=== PATIENT | male | born 1945 | race Caucasian/White ===

== ENCOUNTER → 2018-03-30 | Outpatient (CLI) | payer MEDICARE, BC ==
[~2018-03-30] MED LIST: 0.9 % SODIUM CHLORIDE 10 ML VIAL ONE; IOHEXOL 300 MG/ML 50 ML VIAL. ONE; LIDOCAINE 1% PF 30 ML VIAL. ONE; methylPREDNISolone ACETATE 80 MG/ML VIAL. ONE
== END ==
LOC: SURG 12:21
PROVIDERS: ATTEND Anesthesiology Pain Medicine
DX: M54.16 Radiculopathy, lumbar region (principal); Z72.89 Other problems related to lifestyle; Z87.39 Personal history of other diseases of the musculoskeletal system and connective tissue; Z85.46 Personal history of malignant neoplasm of prostate; Z98.890 Other specified postprocedural states
CPT/HCPCS: 62323; J1040; J2001; Q9967

== ENCOUNTER → 2018-05-03 | Outpatient (CLI) | payer MEDICARE, BC | END | disposition home or self-care (01) | LOC: SURG 12:22 | PROVIDERS: ATTEND Anesthesiology Pain Medicine | DX: M54.16 Radiculopathy, lumbar region (principal); Z85.46 Personal history of malignant neoplasm of prostate; Z87.39 Personal history of other diseases of the musculoskeletal system and connective tissue | CPT/HCPCS: 99213 ==

== ENCOUNTER → 2018-05-24 | Outpatient (CLI) | payer MEDICARE, BC | END | disposition home or self-care (01) | LOC: SURG 09:32 | PROVIDERS: ATTEND Anesthesiology Pain Medicine | DX: Z85.46 Personal history of malignant neoplasm of prostate (principal); I10 Essential (primary) hypertension; M54.16 Radiculopathy, lumbar region; M47.816 Spondylosis without myelopathy or radiculopathy, lumbar region; Z98.890 Other specified postprocedural states; Z87.39 Personal history of other diseases of the musculoskeletal system and connective tissue | CPT/HCPCS: 99213 ==

== ENCOUNTER 2020-07-28 15:11 | Emergency (ER) | payer MEDICARE ==
[~2020-07-28] VITALS: Ht 172.7 cm; Wt 111.3 kg
[2020-07-28] MEDS ORDERED: IV NORMAL SALINE 1,000ML 1,000 ML IV ONE (16:30)
[2020-07-28] MEDS ORDERED: ACETAMINOPHEN 500 MG TABLET PO ONE (16:30)
[2020-07-28 16:39] LABS: BASO % 0 % (0-3); EOS % 0 % (0-3); HEMATOCRIT 44.6 % (39.0-53.0); HEMOGLOBIN 14.9 g/dL (13.0-17.5); LYMPH # 1.6 x10^3/uL (1.0-4.8); LYMPH % 20 % (24-48); MEAN CORPUSCULAR HEMOGLOBIN 30 pg (25-35); MEAN CORPUSCULAR HGB CONC 33 g/dL (31-37); MEAN CORPUSCULAR VOLUME 89 fL (79-100); MONO # 0.6 x10^3/uL (0.0-1.1); MONO % 8 % (0-9); NEUT # 5.7 x10^3uL (1.8-7.7); NEUT % 71 % (31-73); PLATELET COUNT 175 x10^3/uL (140-400); RED BLOOD COUNT 5.03 x10^6/uL (4.30-5.70)
[2020-07-28] MEDS ORDERED: IV NORMAL SALINE 100ML 100 ML ONE (16:43)
[2020-07-28 16:47] LABS: CALCIUM 8.5 mg/dL (8.5-10.1); CREATININE 1.4 mg/dL (0.7-1.3); GFR 49.7; POTASSIUM 4.3 mmol/L (3.5-5.1)
--- NOTE | 2020-07-28 16:53 | RAD ---
EXAM: CT head without contrast INDICATION: Fever, headache COMPARISON: None TECHNIQUE: Axial CT imaging through the head without intravenous contrast. One or more of the following individualized dose reduction techniques were utilized for this examination: 1. Automated exposure control 2. Adjustment of the mA and/or kV according to patient size 3. Use of iterative reconstruction technique. FINDINGS: The ventricles and sulci are within normal limits. [place]-white matter differentiation is maintained. There is no intracranial hemorrhage, acute infarct, or mass lesion. Basal cisterns are clear. The skull and scalp are intact. Paranasal sinuses and mastoid air cells are clear. Globes and orbits are intact.. IMPRESSION: No acute intracranial abnormality. Electronically signed by: Jeanine Malagon MD (07/28/2020 4:50 PM) [id number]
--- NOTE | 2020-07-28 16:54 | RAD ---
EXAM: CHEST AP ONLY 07/28/2020 4:23 PM CLINICAL INDICATION: Fever, cough COMPARISON: None TECHNIQUE: AP upright view the chest FINDINGS: The cardiomediastinal silhouette is within normal limits for technique. The lung are well-expanded and clear. No consolidation, pleural effusion, or pneumothorax. Pulmonary vascularity is normal. There is spinal stimulator leads projecting over the thoracic spine. IMPRESSION: No acute cardiopulmonary abnormality. Electronically signed by: Jeanine Malagon MD (07/28/2020 4:51 PM) [id number]
[2020-07-28 17:00] LABS: ALBUMIN 3.5 g/dL (3.4-5.0); ALBUMIN/GLOBULIN RATIO 0.9 (1.0-1.7); TOTAL BILIRUBIN 0.6 mg/dL (0.2-1.0); TOTAL PROTEIN 7.5 g/dL (6.4-8.2)
--- NOTE | 2020-07-28 17:50 | EKG ---
[address] [address] Test Date: 2020-07-28 Test Time: 17:42:10 Pat Name: EMY DUNCAN Department: Room: Gender: M Driver Manager: PAPITO : 1945 Requested By: GURDEEP SILVA Order Number: [id number] Reading MD: Measurements Intervals [place] Rate: 68 P: 30 KS: 292 QRS: -75 QRSD: 108 T: 26 QT: 402 QTc: 432 Interpretive Statements SINUS RHYTHM PROLONGED [place] INTERVAL ABNORMAL LEFT AXIS DEVIATION R-S TRANSITION ZONE IN V LEADS DISPLACED TO THE LEFT LEFT ANTERIOR FASCICULAR BLOCK ABNORMAL ECG RI6.02 No previous ECG available for comparison
--- NOTE | 2020-07-28 18:11 | PHYS DOC ---
Past History Past Medical History: Anxiety, GERD, High Cholesterol, Other Additional Past Medical Histor: RAPID HEART RATE Past Surgical History: Other Additional Past Surgical Histo: PROSTATE CANCER SURGERY 2003; MULTIPLE BACK SURGERIES Alcohol Use: Occasionally Adult General Chief Complaint Chief Complaint: HEADACHE HPI HPI Patient is a 75-year-old male who presents with generalized malaise. Patient reports generalized malaise and URI-like symptoms for past 48 hours. Reports waking up today with dull headache. Patient lives at home with who reports that patient has not verbally expressed any symptomology prior to her leaving for work this morning. Nonetheless, checked in on patient who was less talkative and quite sounded bad quite over the phone. She ultimately came home to assess patient and was concerned given patient's generalized malaise and lethargic state prompting her to transport patient to our ER for evaluation. On arrival, AAOx3. Patient febrile but otherwise hemodynamically stable. Patient reporting generalized malaise, mild rhinorrhea, dull tension-like headache, without any other abnormal symptoms such as neck pain, chest pain, shortness of breath, productive cough, abdominal pain, urinary symptoms, changes in bladder or bowel function. He does admit he has eaten and drank less over the past 48 hours since symptom onset. No known COVID-19 contacts at this time Review of Systems Review of Systems Fourteen body systems of review of systems have been reviewed. See HPI for pertinent positives and negative responses, other licona all other systems are negative, non-pertinent or non-contributory Current Medications Current Medications Current Medications Medications (Trade) Dose Ordered Sig/Kyler Start Time Stop Time Status Last Admin Dose Admin Acetaminophen (Tylenol) 1,000 mg 1X ONCE 07/28/20 16:30 07/28/20 16:31 DC 07/28/20 16:51 1,000 MG Ceftriaxone Sodium 2 gm/ Sodium Chloride 100 ml @ 200 mls/hr 1X ONCE 07/28/20 16:30 07/28/20 16:59 DC 07/28/20 16:53 200 MLS/HR Ceftriaxone Sodium (Rocephin) 2 gm STK-MED ONCE 07/28/20 16:43 07/28/20 16:43 DC Sodium Chloride 100 ml @ As Directed STK-MED ONCE 07/28/20 16:43 07/28/20 16:43 DC Allergies Allergies Allergies Coded Allergies Type Severity Reaction Last Updated Verified No Known Drug Allergies 07/28/20 No Physical Exam Physical Exam Constitutional: Well developed, well nourished, no acute distress, appears fatigued, mildly diaphoretic HENT: Normocephalic, atraumatic, bilateral external ears normal, oropharynx moist, no oral exudates, moderate postnasal drip present, moderately engorged nasal turbinates with clear rhinorrhea present, external nose normal. Eyes: PERRLA, EOMI, conjunctiva normal, no discharge. Neck: Normal range of motion, no tenderness, supple, no stridor. Negative Kernig and Brudzinski signs, no other meningeal concerns Cardiovascular: Heart rate regular, sinus rhythm, no murmurs rubs or gallops Lungs & Thorax: Bilateral breath sounds clear to auscultation Abdomen: Bowel sounds normal, soft, no tenderness, no masses, no pulsatile masses. Nonsurgical abdomen, no peritoneal signs Skin: Warm, dry, no erythema, no rash. Back: No tenderness, no CVA tenderness. Extremities: No tenderness, no cyanosis, no clubbing, ROM intact, no edema. Neurologic: Alert and oriented X 3, grossly normal motor & sensory function, no focal deficits noted. Psychologic: Affect normal, judgement normal, mood normal. Current Patient Data Vital Signs Vital Signs Date Time Temp Pulse Resp B/P (MAP) Pulse Ox O2 Delivery O2 Flow Rate FiO2 07/28/20 15:49 102.6 74 18 138/81 (100) 94 Lab Results Laboratory Tests Test 07/28/20 16:10 White Blood Count 8.0 x10^3/uL (4.0-11.0) Red Blood Count 5.03 x10^6/uL (4.30-5.70) Hemoglobin 14.9 g/dL (13.0-17.5) Hematocrit 44.6 % (39.0-53.0) Mean Corpuscular Volume 89 fL (79-100) Mean Corpuscular Hemoglobin 30 pg (25-35) Mean Corpuscular Hemoglobin Concent 33 g/dL (31-37) Red Cell Distribution Width 14.0 % (11.5-14.5) Platelet Count 175 x10^3/uL (140-400) Neutrophils (%) (Auto) 71 % (31-73) Lymphocytes (%) (Auto) 20 % (24-48) L Monocytes (%) (Auto) 8 % (0-9) Eosinophils (%) (Auto) 0 % (0-3) Basophils (%) (Auto) 0 % (0-3) Neutrophils # (Auto) 5.7 x10^3uL (1.8-7.7) Lymphocytes # (Auto) 1.6 x10^3/uL (1.0-4.8) Monocytes # (Auto) 0.6 x10^3/uL (0.0-1.1) Eosinophils # (Auto) 0.0 x10^3/uL (0.0-0.7) Basophils # (Auto) 0.0 x10^3/uL (0.0-0.2) Sodium Level 131 mmol/L (136-145) L Potassium Level 4.3 mmol/L (3.5-5.1) Chloride Level 97 mmol/L (98-107) L Carbon Dioxide Level 28 mmol/L (21-32) Anion Gap 6 (6-14) Blood Urea Nitrogen 19 mg/dL (8-26) Creatinine 1.4 mg/dL (0.7-1.3) H Estimated GFR (Cockcroft-Gault) 49.7 BUN/Creatinine Ratio 14 (6-20) Glucose Level 98 mg/dL (70-99) Glucose (Fingerstick) 96 mg/dL (70-99) Lactic Acid Level 0.9 mmol/L (0.4-2.0) Calcium Level 8.5 mg/dL (8.5-10.1) Total Bilirubin 0.6 mg/dL (0.2-1.0) Aspartate Amino Transferase (AST) 38 U/L (15-37) H Alanine Aminotransferase (ALT) 39 U/L (16-63) Alkaline Phosphatase 64 U/L (46-116) Troponin I Quantitative < 0.017 ng/mL (0-0.055) BZ-Fbr-Y-Type Natriuretic Peptide 66 pg/mL (0-124) Total Protein 7.5 g/dL (6.4-8.2) Albumin 3.5 g/dL (3.4-5.0) Albumin/Globulin Ratio 0.9 (1.0-1.7) L Lipase 96 U/L (73-393) EKG EKG EKG ordered and interpreted by myself at 1745 hrs. as sinus rhythm at 68 bpm, prolonged IL interval at 292 with no other abnormal intervals, left axis deviation, no acute ischemic findings, no STEMI Radiology/Procedures Radiology/Procedures PROCEDURE: CHEST AP ONLY EXAM: CHEST AP ONLY 07/28/2020 4:23 PM CLINICAL INDICATION: Fever, cough COMPARISON: None TECHNIQUE: AP upright view the chest FINDINGS: The cardiomediastinal silhouette is within normal limits for technique. The lung are well-expanded and clear. No consolidation, pleural effusion, or pneumothorax. Pulmonary vascularity is normal. There is spinal stimulator leads projecting over the thoracic spine. IMPRESSION: No acute cardiopulmonary abnormality. Electronically signed by: Jeanine Malagon MD (07/28/2020 4:51 PM) [id number] PROCEDURE: CT HEAD WO CONTRAST EXAM: CT head without contrast INDICATION: Fever, headache COMPARISON: None TECHNIQUE: Axial CT imaging through the head without intravenous contrast. One or more of the following individualized dose reduction techniques were utilized for this examination: 1. Automated exposure control 2. Adjustment of the mA and/or kV according to patient size 3. Use of iterative reconstruction technique. FINDINGS: The ventricles and sulci are within normal limits. [place]-white matter differentiation is maintained. There is no intracranial hemorrhage, acute infarct, or mass lesion. Basal cisterns are clear. The skull and scalp are intact. Paranasal sinuses and mastoid air cells are clear. Globes and orbits are intact.. IMPRESSION: No acute intracranial abnormality. Electronically signed by: Jeanine Malagon MD (07/28/2020 4:50 PM) [id number] Heart Score HEART Score for Chest Pain: HEART Score for Chest Pain Response (Comments) Value History Slighlty/Non-Suspicious 0 ECG Normal 0 Age > 65 2 Risk Factors 1 or 2 Risk Factors 1 Troponin < Normal Limit 0 Total 3 Risk Factors: Risk Factors: DM, Current or recent (<one month) smoker, HTN, HLP, family history of CAD, obesity. Risk Scores: Risk Factors: DM, Current or recent (<one month) smoker, HTN, HLP, family history of CAD, obesity. Course & Med Decision Making Course & Med Decision Making Pertinent Labs and Imaging studies reviewed. (See chart for details) 1 L normal saline, 1 g Tylenol and 2 g IV Rocephin administered Patient periodically assessed throughout entirety of ER stay with improvement in symptomology. Reports complete improvement in headache. Reports "feeling much better" I reviewed patient's ER stay in its entirety with patient and . I have no confirmed explanation for patient's fever. I suspect potential viral syndrome at this time, I cannot exclude COVID-19 due to ongoing pandemic and so patient was swabbed today with results pending Given my work-up today, I have have not found any concerning and/or emergent and/or surgical findings. I did disclose this might be an acute presentation of more concerning pathology with both patient and with good understanding of this and reiterated importance of close follow-up I offered patient lumbar puncture and other diagnostic modalities while in ER today but given that he was feeling better, he wanted to go home. At time of discharge, patient hemodynamically stable, tolerating p.o. intake, and going home with for continued monitoring with close PCP follow-up. I feel this plan of care is appropriate I stressed importance of strict return precautions and educated both patient and on this extensively with good understanding, all questions and concerns addressed prior to ER departure in stable condition Dragon Disclaimer Dragon Disclaimer This electronic medical record was generated, in whole or in part, using a voice recognition dictation system. Departure Departure: Impression: Primary Impression: Fever Additional Impression: Person under investigation for COVID-19 Disposition: 01 MO HOME SELF CARE/HOMELESS Condition: STABLE Referrals: EMY BHATT MD (PCP) Patient Instructions: Fever, Adult Additional Instructions: You have been evaluated in the Emergency Department today for fever. Your evaluation was not suggestive of any emergent condition requiring medical intervention at this time. However, some problems make take more time to appear. Therefore, it is important for you to watch for any new symptoms or worsening of your current condition. As discussed, it is imperative you follow-up with your primary care physician within 72 hours after COVID-19 test is negative for repeat examination to ensure continued symptomatic improvement. If there is no resolution and/or you experience worsening pain, persistent fevers greater than 100.4, recurrent vomiting, blood in vomit, blood in stool, dark tarry stool, chest pain, difficulty breathing, or any other concerning symptoms; please do not hesitate to come back for repeat evaluation Below you will see home care instructions for potential self-limiting viral syndrome such as COVID-19. It was a pleasure to take care of you today and I wish you a speedy recovery! Home Care Instructions for Patients with Mild Respiratory Infection Most people with respiratory infections like colds, the flu, and Coronavirus Disease (COVID-19) will have mild illness and can get better with appropriate home care and without the need to see a provider. People who are elderly, , or have a weak immune system, or other medical problem are at higher risk of more serious illness or complications. It is recommended that they carefully monitor their symptoms closely and seek medical care early if their symptoms get worse. Treatment There is no specific treatment for most viruses including those that that cause the common cold and those that cause COVID-19. Sometimes there is treatment for the viruses that cause influenza if given early. Antibiotics treat infections caused by bacteria, but they do not work against viruses.Most people recover on their own from these viruses, including COVID-19. Here are steps that you can take to help you get better: Rest Drink plenty of fluids Take wjnd-bss-ibojpdw cold and flu medications to reduce fever and pain. Follow the instructions on the package, unless your doctor gave you instructions. Note that these medicines do not ``cure the illness and therefore do not stop you from spreading germs. Children should not be given medication that contains aspirin (acetylsalicylic acid) because it can cause a rare but serious illness called Asif syndrome. Medicines without aspirin include acetaminophen (Tylenol) and ibuprofen (Advil, Motrin). Children younger than age 2 should not be given any vaxb-yxx-lsvteif cold medications without first speaking with a doctor.Seeking Medical Care You should seek medical care if you are not getting better within a week, or if your symptoms get worse. If you are elderly, , have a weak immune system, or other medical problems, call your doctor right away. It is best to call ahead of time to discuss your symptoms, if possible. This may allow you to receive the advice you need by phone. By avoiding a visit to a healthcare facility, you protect yourself from getting a new infection and protect others from catching an infection from you. If you do visit a healthcare facility, put on a mask to protect other patients and staff. It is recommended that you seek medical care for serious symptoms, such as: People with potentially life-threatening symptoms should call 911. If possible, put on a facemask before emergency medical services arrive.PROTECTING OTHERS Follow the steps below to help prevent the disease from spreading to people in your home and community.Stay home when you are sick Stay home - do not go to work, school, or public areas. Stay home for at least 24 hours after your symptoms have gone away without the use of fever-reducing medicines. If you must leave home while you are sick, try to avoid using public transport ation, ride-shares, and taxis. Wear a mask if possible. Separate yourself from other people and animals in your home Stay in a specific room and away from other people in your home as much as possible. Use a separate bathroom, if available. Try to stay at least 6 feet from others. Do not handle pets or other animals while you are sick. Cover your coughs and sneezes Cover your mouth and nose with a tissue when you cough or sneeze. Throw used tissues in a lined trash can; immediately wash your hands. Avoid sharing personal household items Do not share dishes, drinking glasses, cups, eating utensils, towels, or bedding with other people or pets in your home. Wash them thoroughly with soap and water after use. Clean your hands often Wash your hands often with soap and water for at least 20 seconds. If soap and water are not available, clean your hands with an alcohol-based hand legal entity controller that contains at least 60% alcohol, covering all surfaces of your hands and rubbing them together until they feel dry. Use soap and water if your hands are visibly dirty. Clean all ``high-touch surfaces every day High touch surfaces include counters, tabletops, doorknobs, bathroom fixtures, toilets, phones, keyboards, tablets, and bedside tables. Also, clean any surfaces that may have body fluids on them. Use a household cleaning spray or wipe, according to the product label instructions. COVID-19 (Novel Coronavirus) FAQs for Inquiring Patients What do you do if you are worried that you have been exposed to COVID-19 but are without any symptoms? If you develop symptoms that may indicate an infection, contact your physician. These include fever, cough, and shortness of breath. Testing is not available for asymptomatic individuals, regardless of travel history. To reduce the chance of getting sick use general infection prevention measures such as hand washing, covering your mouth and nose when you cough or sneeze and discarding any tissues carefully, and staying home when you are sick.Can exceptions be made for patients who are really worried and want to be tested? Presently testing is only available through the [facility] Department of Public Health and Centers for Disease Control and Prevention. Only patients who meet the updated COVID-19 PUI definition may be tested. We do not control or set the PUI definition or evaluation criteria. We are unable to provide testing to patients who do not meet the strict criteria. Should patients cancel or postpone an upcoming trip? The decision about travel is personal and should be made in the context of a persons underlying health conditions, reason for travel and necessity of travel. Travel insurance generally does not cover cancellations due to concerns of infectious disease outbreaks. The Center for Disease Control has a section on travel notices. Situations are changing frequently and you should monitor the site for updates. Should situations change rapidly in a foreign country while they are traveling, you could be subject to quarantine or restrictions upon return to the [place]. It is best to have a plan on how to return urgently if needed during a trip abroad. Because of how air circulates and is filtered on airplanes, most viruses do not spread easily on airplanes. CDC does not recommend use of facemasks during air travel.What other general precautions are advised? Patients should be instructed to: Avoid close contact with people who are sick. Avoid touching your eyes, nose and mouth. Stay home from work or school when they are sick. If you have a fever, you sh ould remain home until 24 hours after fever resolves. Clean and disinfect frequently touched objects and surfaces using a regular household cleaning spray or wipe. Sneeze/cough into their elbow, not your hand. Practice frequent hand hygiene with soap and water (at least 20 seconds) or alcohol-based hand rub. Consider avoiding crowded places or mass gatherings, especially if you are immunocompromised or have chronic lung disease. There is no evidence to support transmission of COVID-19 from goods imported fr [facility]. Are there any special precautions that are recommended if I am ? There is not yet any information available about the susceptibility of women to COVID-19. As a general rule, women may be more susceptible to viral respiratory infections and at risk for more severe illness. The CDC guidance for COVID-19 and has answers to questions about transmission during delivery, as well as other situations. Should food, water, or medications be stockpiled? Should people telecommute? The CDC has excellent information on this. Please visit the CDCs guidance for getting your household ready for COVID-19. What should I do if I start feeling sick at work? And what should the workplace do for anyone exposed? Anyone who is sick with a fever and cough should stay home from work until at least 24 hours after resolution of fever, regardless of concerns for COVID-19. It is still influenza (flu) season and influenza remains far more common. Problem Qualifiers GURDEEP SILVA DO Jul 28, 2020 18:11
[2020-07-28 18:16] VITALS: BP 103/69
== END 2020-07-28 18:28 | disposition home or self-care (01) ==
LOC: ER 15:11
DX: U07.1 COVID-19 (principal); F41.9 Anxiety disorder, unspecified; K21.9 Gastro-esophageal reflux disease without esophagitis; E78.00 Pure hypercholesterolemia, unspecified
CPT/HCPCS: 36415; 70450; 71045; 80053; 82947; 83605; 83690; 83880; 84484; 85025; 87040; 93005; 96365; 96366; 99285; C9803; J0696; J7030; U0003

== ENCOUNTER 2020-08-02 23:36 | Emergency (ER) | payer MEDICARE ==
[~2020-08-02] VITALS: Ht 172.7 cm; Wt 111.3 kg
[2020-08-02] MEDS ORDERED: ALBUTEROL SULFATE 2.5 MG/3 ML NEBU. ONE (23:40)
--- NOTE | 2020-08-03 00:01 | PHYS DOC ---
Past History Past Medical History: Anxiety, GERD, High Cholesterol, Other Additional Past Medical Histor: RAPID HEART RATE Past Surgical History: Other Additional Past Surgical Histo: PROSTATE CANCER SURGERY 2003; MULTIPLE BACK SURGERIES Alcohol Use: Occasionally General Adult EDM: Chief Complaint: Shortness of breath HPI: HPI: 75-year-old male presents via EMS with shortness of breath. Patient was stated to have been seen in this emergency room less than a week ago and discharged home. No immediate details were available. When EMS arrived at his house, his oxygen saturation was in the 50s. They were able to get him up to 79 on a nonrebreather. The patient was noted to have a fever at home. The patient is able to open his eyes and give us his name, but does not provide any other history. Review of Systems: Review of Systems: Unable to perform due to patient's distress Current Medications: Current Meds: Current Medications Medications (Trade) Dose Ordered Sig/Kyler Start Time Stop Time Status Last Admin Dose Admin Albuterol Sulfate (Ventolin) 2.5 mg STK-MED ONCE 08/02/20 23:40 08/02/20 23:40 DC Allergies: Allergies: Allergies Coded Allergies Type Severity Reaction Last Updated Verified No Known Drug Allergies 07/28/20 No Physical Exam: PE: Constitutional: Well developed, well nourished, obese, severe acute distress, non-toxic appearance. [] HENT: Normocephalic, atraumatic, bilateral external ears normal, oropharynx dry, no oral exudates, nose normal. [] Eyes: PERRLA, EOMI, conjunctiva normal, no discharge. [] Neck: Normal range of motion, no tenderness, supple, no stridor. [] Cardiovascular: Heart rate 75, regular rhythm, no murmur [] Lungs & Thorax: Bilateral breath sounds diminished with expiratory wheezing [] Abdomen: Bowel sounds normal, soft, no tenderness, no masses, no pulsatile masses. [] Skin: Warm, dry, no erythema, no rash. [] Back: No tenderness, no CVA tenderness. [] Extremities: No tenderness, no cyanosis, no clubbing, ROM intact, no edema. [] Neurologic: Able to open eyes spontaneously, able to state his name [] Psychologic: Unable to assess. [] EKG: EKG: Sinus rhythm, rate 75, leftward axis, no ST elevations or depressions. [] Radiology/Procedures: Radiology/Procedures: [] Heart Score: Risk Factors: Risk Factors: DM, Current or recent (<one month) smoker, HTN, HLP, family history of CAD, obesity. Risk Scores: Score 0 - 3: 2.5% MACE over next 6 weeks - Discharge Home Score 4 - 6: 20.3% MACE over next 6 weeks - Admit for Clinical Observation Score 7 - 10: 72.7% MACE over next 6 weeks - Early Invasive Strategies Course & Med Decision Making: Course & Med Decision Making Pertinent Labs and Imaging studies reviewed. (See chart for details) On arrival the patient was on a nonrebreather with oxygen saturation of 77 to 79%. He placed him on oxygen and he was 79% at 15 L. His respiratory rate was only around 35-40. He was making a vocal noise with every exhale, but I believe he was still wheezing. We started an albuterol nebulizer treatment. After several minutes of this treatment, the patient's oxygen saturation was still about 75. I made the decision to place him on CPAP. His oxygen saturation improved to 95%. His ABG is 7.45 with a CO2 of 32 and an O2 of 44. His lactic acid is 2. I will give him 500 mL of normal saline as COVID-19 is the most likely diagnosis. A review of his history with his spouse feels that the patient was tested for COVID-19 and he discovered he was in fact +6 days ago. Chest x-ray is highly suggestive of COVID-19. See official read for more details. Patient will need to be admitted to the ICU. We will transfer him to [facility]. I spoke with Dr. Castro and he has accepted the patient for transfer. The patient's repeat ABG has improved. His repeat lactic acid is also lower. His troponin however is more elevated. 64 minutes of critical care time was spent on this patient exclusive of other billable procedures. [] Dragon Disclaimer: Dragon Disclaimer: This electronic medical record was generated, in whole or in part, using a voice recognition dictation system. Departure Departure: Impression: Primary Impression: COVID-19 Disposition: 02 DC/TRF OTHER SHORT TERM HOS Condition: GUARDED Referrals: EMY BHATT MD (PCP) MAGALY MERCHANT DO Aug 03, 2020 00:01
[2020-08-03] MEDS ORDERED: ACETAMINOPHEN 500 MG TABLET PO ONE (00:15)
[2020-08-03] MEDS ORDERED: IV NORMAL SALINE 500ML 500 ML IV ONE (00:15)
[2020-08-03] MEDS ORDERED: ALBUTEROL SULFATE 2.5 MG/3 ML NEBU. CONT NEB ONE (00:15)
[2020-08-03 00:27] LABS: BASO % 0 % (0-3); EOS % 0 % (0-3); HEMATOCRIT 40.4 % (39.0-53.0); HEMOGLOBIN 13.3 g/dL (13.0-17.5); LYMPH # 0.7 x10^3/uL (1.0-4.8); LYMPH % 7 % (24-48); MEAN CORPUSCULAR HEMOGLOBIN 29 pg (25-35); MEAN CORPUSCULAR HGB CONC 33 g/dL (31-37); MEAN CORPUSCULAR VOLUME 88 fL (79-100); MONO # 0.2 x10^3/uL (0.0-1.1); MONO % 2 % (0-9); NEUT # 9.4 x10^3uL (1.8-7.7); NEUT % 91 % (31-73); PLATELET COUNT 238 x10^3/uL (140-400); RED CELL DISTRIBUTION WIDTH 13.9 % (11.5-14.5); WHITE BLOOD COUNT 10.3 x10^3/uL (4.0-11.0)
[2020-08-03 00:32] LABS: CALCIUM 8.2 mg/dL (8.5-10.1); CREATININE 1.6 mg/dL (0.7-1.3); GFR 42.6; POTASSIUM 4.4 mmol/L (3.5-5.1)
[2020-08-03] MEDS ORDERED: ACETAMINOPHEN 650 MG SUPP.RECT. ONE (00:32)
[2020-08-03 00:38] LABS: ALBUMIN 2.7 g/dL (3.4-5.0); ALBUMIN/GLOBULIN RATIO 0.8 (1.0-1.7); TOTAL BILIRUBIN 0.5 mg/dL (0.2-1.0); TOTAL PROTEIN 6.3 g/dL (6.4-8.2)
[2020-08-03] MEDS ORDERED: ACETAMINOPHEN 650 MG SUPP.RECT. PR ONE ×2 (00:45→01:00)
[2020-08-03 00:54] LABS: BGAS PH 7.45 (7.35-7.46)
--- NOTE | 2020-08-03 00:58 | RAD ---
CHEST AP ONLY Clinical History: Reason: SOB / Spl. Instructions: / History: Technique: AP view of the chest was obtained at 08/02/2020 11:43 PM. Comparison: July 28, 2020. Findings: The heart is mild to moderately enlarged. The pulmonary vessels are top normal limits in size. There is patchy opacities throughout the lungs bilaterally left worse than right. The pleural margins are clear. There is prominence of superior mediastinum. Impression: 1. Mild to moderate cardiomegaly. 2. Moderate bilateral infiltrates suggesting atypical pneumonia. 3. Prominence of the superior mediastinum could be secondary lymphadenopathy. Electronically signed by: Hong Mccoy III, MD (08/03/2020 12:55 AM) [facility]
[2020-08-03 01:03] LABS: COLOR,URINE YELLOW
[2020-08-03 01:04] LABS: BACTERIA,URINE 0 /HPF (0-FEW); BILIRUBIN,URINE NEG (NEG); CLARITY,URINE CLEAR; GLUCOSE,URINE NEG (NEG); NITRITE,URINE NEG (NEG); RBC,URINE OCC /HPF (0-2); SQUAMOUS EPITHELIAL CELL,UR OCC /LPF; WBC,URINE 0 /HPF (0-4)
--- NOTE | 2020-08-03 01:07 | EKG ---
[address] [address] Test Date: 2020-08-02 Test Time: 23:55:56 Pat Name: EMY DUNCAN Department: Room: Gender: M [employer] Operator: CINDI : 1945 Requested By: MAGALY MERCHANT Order Number: [id number] Reading MD: Measurements Intervals [place] Rate: 75 P: -31 NC: 258 QRS: -54 QRSD: 100 T: 16 QT: 416 QTc: 467 Interpretive Statements SINUS RHYTHM ATRIAL PREMATURE COMPLEX(ES) PROLONGED NC INTERVAL ABNORMAL LEFT AXIS DEVIATION R-S TRANSITION ZONE IN V LEADS DISPLACED TO THE LEFT LEFT ANTERIOR FASCICULAR BLOCK INCOMPLETE RIGHT BUNDLE BRANCH BLOCK ABNORMAL ECG RI6.02 No previous ECG available for comparison
[2020-08-03] MEDS ORDERED: AZITHROMYCIN 500 MG VIAL. IV ONE (01:48)
[2020-08-03] MEDS ORDERED: IV NORMAL SALINE 250ML 250 ML ONE (01:49)
[2020-08-03] MEDS ORDERED: AZITHROMYCIN 500 MG in IV NORMAL SALINE 250ML 250 ML IV ONE (02:00)
[2020-08-03 02:01] VITALS: BP 128/46
[2020-08-03 03:26] LABS: BGAS PH 7.4 (7.35-7.46)
== END 2020-08-03 05:00 | disposition short-term general hospital (02) ==
LOC: ER 23:36
DX: U07.1 COVID-19 (principal); R06.02 Shortness of breath; R50.9 Fever, unspecified; F41.9 Anxiety disorder, unspecified; K21.9 Gastro-esophageal reflux disease without esophagitis; E78.00 Pure hypercholesterolemia, unspecified; Z85.9 Personal history of malignant neoplasm, unspecified; Z98.890 Other specified postprocedural states
CPT/HCPCS: 36415; 36600; 71045; 80053; 81001; 82803; 82947; 83605; 83880; 84484; 85025; 87040; 93005; 94640; 94645; 94660; 96361; 96365; 99291; C9803; J0456; J7040; J7050; J7613; U0003